=== PATIENT | male | born 1950 | race Caucasian/White ===

== ENCOUNTER 2017-04-08 05:55 | Emergency (ER) | payer MEDICARE, MEDICAID ==
[~2017-04-08] VITALS: Ht 185.4 cm; Wt 86.4 kg
[~2017-04-08 05:55] MED LIST: CHLO25CA10 PO; GABA-532 PO; LORA-269 PO; LORAZEPAM 1 MG TABLET; TAMS0.4C32 PO
[2017-04-08] MEDS ORDERED: LORazepam 1 MG tablet PO ONE (07:10)
[2017-04-08 07:22] VITALS: BP 137/81
== END 2017-04-08 07:25 | disposition home or self-care (01) ==
LOC: ER 05:56
DX: F41.9 Anxiety disorder, unspecified (principal); F10.20 Alcohol dependence, uncomplicated
CPT/HCPCS: 99284

== ENCOUNTER 2017-04-14 18:28 | Emergency (ER) | payer MEDICARE, MEDICAID ==
[~2017-04-14] VITALS: Ht 182.9 cm; Wt 86.3 kg
[2017-04-14] MEDS ORDERED: TETanus/Pertussis (Acell)/Diphther VAC/PF (Tdap-Adult) 0.5ml syringe IM ONE (18:40)
[2017-04-14] MEDS ORDERED: bacitracin 15gm ointment TP ONE (18:40)
[2017-04-14] MEDS ORDERED: normal saline 1000ml 1,000 ML IV ONE (18:45)
[2017-04-14 18:50] LABS: BASOPHILS % (AUTO) 0.3 % (0-1); EOSINOPHILS # (AUTO) 0.1 X10'3 (0-0.9); EOSINOPHILS % (AUTO) 1.3 % (0-6); HEMATOCRIT 40.9 % (42.0-52.0); HEMOGLOBIN 14.3 g/dl (14.0-17.9); LYMPHOCYTES # (AUTO) 2.3 X10'3 (1.1-4.8); LYMPHOCYTES % (AUTO) 37.3 % (21-51); MEAN CORPUSCULAR HEMOGLOBIN 34.4 PG (27.0-31.0); MEAN CORPUSCULAR VOLUME 98.3 FL (78-98); MEAN PLATELET VOLUME 6.8 FL (7.4-10.4); MONOCYTES # (AUTO) 0.4 X10'3 (0-0.9); MONOCYTES % (AUTO) 7.1 % (2-12); NEUTROPHILS # (AUTO) 3.3 X10'3 (1.8-7.7); PLATELET COUNT 165 X10'3 (140-440); RED BLOOD COUNT 4.16 X10'6 (4.70-6.10); RED CELL DISTRIBUTION WIDTH 13.1 % (11.5-14.5); WHITE BLOOD COUNT 6.1 X10'3 (4.5-11.0)
[2017-04-14 19:04] LABS: PARTIAL THROMBOPLASTIN TIME 25 SECONDS (22-32); PROTHROMBIN TIME 10.7 SECONDS (9.0-12.0)
[2017-04-14] MEDS ORDERED: thiamine 100mg/ml 2ml inj. IM ONE (19:05)
[2017-04-14] MEDS ORDERED: iohexol 300mg/ml 100ml inj. ONE (19:13)
[2017-04-14 19:35] LABS: CLARITY,URINE CLEAR (Clear); COLOR,URINE YELLOW (Yellow); GLUCOSE, URINE NEGATIVE (Neg); KETONES,URINE NEGATIVE (Neg); LEUKOCYTE ESTERASE ,URINE NEGATIVE (Neg); NITRITES, URINE NEGATIVE (Neg); OCCULT BLOOD,URINE NEGATIVE (Neg); PROTEIN,URINE NEGATIVE (Neg); UROBILINOGEN,URINE 0.2 E.U/dL (0.2-1.0)
[2017-04-14 19:38] LABS: UA COLLECTION TYPE CLN CATCH MIDSTREAM
[2017-04-14 19:42] LABS: ALANINE AMINOTRANSFERASE 82 U/L (12-78); ALBUMIN 2.9 G/DL (3.4-5.0); ALBUMIN/GLOBULIN RATIO 0.9 (1.1-1.5); ALKALINE PHOSPHATASE 50 IU/L (46-116); ANION GAP 11 (8-16); ASPARTATE AMINO TRANSFERASE 60 U/L (10-37); BILIRUBIN,TOTAL 0.3 MG/DL (0.1-1.0); BLOOD UREA NITROGEN 9 MG/DL (7-18); CALCIUM 7.5 MG/DL (8.5-10.1); CHLORIDE 105 MMOL/L (99-107); CREATININE 0.82 MG/DL (0.60-1.10); ETHANOL 0.299 GM/DL (0.0-0.010); GLUCOSE 120 MG/DL (70-104); POTASSIUM 3.6 MMOL/L (3.5-5.1); SODIUM 142 MMOL/L (135-145); TOTAL CARBON DIOXIDE 26.4 MMOL/L (24-32); TOTAL PROTEIN 6.1 G/DL (6.4-8.2); TROPONIN I < 0.04 NG/ML (0.0-0.05); eGFR > 90 ML/MIN
[2017-04-14 19:43] LABS: URINE AMPHETAMINE SCREEN NEGATIVE (Neg); URINE BARBITUATE SCREEN NEGATIVE (Neg); URINE BENZODIAZEPINES SCREEN NEGATIVE (Neg); URINE CANNABINOID SCREEN NEGATIVE (Neg); URINE COCAINE SCREEN NEGATIVE (Neg); URINE METHADONE SCREEN NEGATIVE (Neg); URINE OPIATE SCREEN NEGATIVE (Neg); URINE PHENCYCLIDINE SCREEN NEGATIVE (Neg)
[2017-04-14] MEDS ORDERED: LIDOcaine 1.5% w/epinephrine 1:200,000 5ml ampul SQ ONE (19:50)
[2017-04-14] MEDS ORDERED: normal saline 1000ML IV soln IVB ONE (20:10)
[2017-04-14] MEDS ORDERED: cefazolin 1gm/NS 100mL 100 ML IV ONE (20:30)
[2017-04-14] MEDS ORDERED: cefTRIAXone 1g/NS 100ml IVPB 100 ML IV ONE (20:30)
[2017-04-14] MEDS ORDERED: AMOX500C2 PO (21:07)
[2017-04-14 22:24] VITALS: BP 148/89
[2017-04-15] MEDS ORDERED: LORA1TAB PO (02:54)
== END 2017-04-14 22:27 | disposition home or self-care (01) ==
LOC: ER 18:29
DX: S02.2XXA Fracture of nasal bones, initial encounter for closed fracture (principal); S02.40DA Maxillary fracture, left side, initial encounter for closed fracture; S01.511A Laceration without foreign body of lip, initial encounter; F10.229 Alcohol dependence with intoxication, unspecified; Y90.9 Presence of alcohol in blood, level not specified; Z98.890 Other specified postprocedural states; Z79.899 Other long term (current) drug therapy; W01.0XXA Fall on same level from slipping, tripping and stumbling without subsequent striking against object, initial encounter; Y93.89 Activity, other specified; Y92.89 Other specified places as the place of occurrence of the external cause; Y99.8 Other external cause status; Y90.8 Blood alcohol level of 240 mg/100 ml or more
CPT/HCPCS: 12011; 36415; 70450; 70486; 71045; 71260; 72125; 74177; 80053; 80305; 80320; 81003; 84484; 85025; 85610; 85730; 86885; 86900; 86901; 90471; 90715; 93005; 96365; 96368; 96372; 99285; A6255; A6446; A6449; J0690; J0696; J3411; J7030; Q9967

== ENCOUNTER 2017-04-15 02:48 | Emergency (ER) | payer MEDICARE, MEDICAID ==
[~2017-04-15] VITALS: Ht 182.9 cm; Wt 86.3 kg
[~2017-04-15 02:48] MED LIST changes: +AMOX500C2 PO
[2017-04-15] MEDS ORDERED: LORA1TAB PO (02:54)
[2017-04-15] MEDS ORDERED: LORazepam 1 MG tablet PO ONE (02:55)
[2017-04-15 02:58] VITALS: BP 145/87
== END 2017-04-15 03:06 | disposition home or self-care (01) ==
LOC: ER 02:49
DX: F10.230 Alcohol dependence with withdrawal, uncomplicated (principal); Z88.1 Allergy status to other antibiotic agents; Z79.899 Other long term (current) drug therapy
CPT/HCPCS: 93005; 99283

== ENCOUNTER 2017-04-25 16:35 | Emergency (ER) | payer MEDICARE, MEDICAID ==
[~2017-04-25] VITALS: Ht 182.9 cm; Wt 92.0 kg
[~2017-04-25 16:35] MED LIST changes: +LORA1TAB PO
[2017-04-25] MEDS ORDERED: LORA1TAB PO (19:45)
[2017-04-25] MEDS ORDERED: LORazepam 1 MG tablet PO ONE (19:45)
[2017-04-25 20:02] VITALS: BP 149/120
== END 2017-04-25 20:03 | disposition home or self-care (01) ==
LOC: ER 16:36
DX: F10.239 Alcohol dependence with withdrawal, unspecified (principal); Z88.1 Allergy status to other antibiotic agents; Z79.01 Long term (current) use of anticoagulants
CPT/HCPCS: 99283

== ENCOUNTER 2017-05-31 14:46 | Emergency (ER) | payer MEDICARE, MEDICAID ==
[~2017-05-31] VITALS: Ht 180.3 cm; Wt 94.6 kg
[~2017-05-31 14:46] MED LIST changes: -AMOX500C2 PO; -LORA1TAB PO
[2017-05-31 16:18] VITALS: BP 157/64
[2017-05-31] MEDS ORDERED: PROP10TA10 PO (17:11)
== END 2017-05-31 17:39 | disposition home or self-care (01) ==
LOC: ER 14:46
DX: F41.9 Anxiety disorder, unspecified (principal); Z98.890 Other specified postprocedural states; Z79.899 Other long term (current) drug therapy
CPT/HCPCS: 99284

== ENCOUNTER 2017-06-07 21:04 | Emergency (ER) | payer MEDICARE, MEDICAID ==
[~2017-06-07] VITALS: Ht 182.9 cm; Wt 88.6 kg
[~2017-06-07 21:04] MED LIST changes: +PROP10TA10 PO
[2017-06-07] MEDS ORDERED: CHLO25CA10 PO (22:07)
[2017-06-07 22:18] VITALS: BP 134/92
[2017-06-07] MEDS: chlordiazePOXIDE 25mg capsule PO ONE (22:18)
== END 2017-06-07 22:23 | disposition home or self-care (01) ==
LOC: ER 21:06
DX: F10.239 Alcohol dependence with withdrawal, unspecified (principal); Z79.899 Other long term (current) drug therapy
CPT/HCPCS: 99283

== ENCOUNTER 2020-09-29 23:50 | Emergency (ER) | payer MEDICARE, MEDICAID ==
[~2020-09-29] VITALS: Ht 188 cm; Wt 110.0 kg
[~2020-09-29 23:50] MED LIST changes: -PROP10TA10 PO
--- NOTE | 2020-09-30 00:10 | NUR ---
pt states drink 1/2 pint of vodka daily.
--- NOTE | 2020-09-30 01:20 | NUR ---
pt yelling at staff, angry that he has to have the pulse ox on his finger. He is unsure why he is here and requests to leave. attempted to call his sister who did not answer.
[2020-09-30 02:40] LABS: BASOPHILS % (AUTO) 0.6 % (0-1); EOSINOPHILS # (AUTO) 0.1 X10'3 (0-0.9); EOSINOPHILS % (AUTO) 1.4 % (0-6); HEMATOCRIT 46.4 % (42.0-52.0); HEMOGLOBIN 15.9 g/dl (14.0-17.9); LYMPHOCYTES # (AUTO) 2.9 X10'3 (1.1-4.8); MEAN CORPUSCULAR HEMOGLOBIN 32.7 PG (27.0-31.0); MEAN CORPUSCULAR HGB CONC 34.2 g/dL (33.0-36.5); MEAN CORPUSCULAR VOLUME 95.7 FL (78-98); MEAN PLATELET VOLUME 8.1 FL (7.4-10.4); MONOCYTES # (AUTO) 0.8 X10'3 (0-0.9); MONOCYTES % (AUTO) 9.7 % (2-12); NEUTROPHILS # (AUTO) 4.2 X10'3 (1.8-7.7); NEUTROPHILS % (AUTO) 52.3 % (42-75); PLATELET COUNT 105 X10'3 (140-440); RED BLOOD COUNT 4.85 X10'6 (4.70-6.10); RED CELL DISTRIBUTION WIDTH 12.9 % (11.5-14.5)
[2020-09-30 02:49] LABS: CLARITY,URINE CLEAR (Clear); COLOR,URINE YELLOW (Yellow); GLUCOSE, URINE >=1000 mg/dl (Neg); KETONES,URINE NEGATIVE (Neg); LEUKOCYTE ESTERASE ,URINE NEGATIVE (Neg); NITRITES, URINE NEGATIVE (Neg); OCCULT BLOOD,URINE NEGATIVE (Neg); PROTEIN,URINE TRACE mg/dl (Neg); UROBILINOGEN,URINE 0.2 E.U/dL (0.2-1.0)
[2020-09-30 02:51] LABS: ALANINE AMINOTRANSFERASE 99 U/L (12-78); ALBUMIN 3.4 G/DL (3.4-5.0); ALBUMIN/GLOBULIN RATIO 0.9 (1.1-1.5); ALKALINE PHOSPHATASE 79 IU/L (46-116); ANION GAP 8 (8-16); ASPARTATE AMINO TRANSFERASE 58 U/L (10-37); BILIRUBIN,TOTAL 0.5 MG/DL (0.1-1.0); BLOOD UREA NITROGEN 11 MG/DL (7-18); BUN/CREATININE RATIO 9.9 (5.4-32.0); CHLORIDE 105 MMOL/L (99-107); CREATININE 1.11 MG/DL (0.60-1.10); GLUCOSE 342 MG/DL (70-104); POTASSIUM 3.9 MMOL/L (3.5-5.1); SODIUM 140 MMOL/L (135-145); TOTAL CARBON DIOXIDE 27.1 MMOL/L (24-32); TOTAL PROTEIN 7.2 G/DL (6.4-8.2); eGFR 65 ML/MIN
[2020-09-30 02:55] LABS: ETHANOL 0.069 GM/DL (0.0-0.010); TROPONIN I 0.04 NG/ML (0.0-0.05)
[2020-09-30 03:39] LABS: BACTERIA,URINE NONE SEEN /HPF (Neg); RBC,URINE NONE SEEN /HPF (0-2); UA COLLECTION TYPE VOIDED; WBC,URINE NONE SEEN /HPF (0-4)
[2020-09-30 03:40] LABS: SQUAMOUS EPITHELIAL CELL,UR NONE SEEN /LPF (FEW)
[2020-09-30 05:02] LABS: URINE AMPHETAMINE SCREEN NEGATIVE (Neg); URINE BARBITUATE SCREEN NEGATIVE (Neg); URINE BENZODIAZEPINES SCREEN POSITIVE (Neg); URINE CANNABINOID SCREEN NEGATIVE (Neg); URINE COCAINE SCREEN NEGATIVE (Neg); URINE METHADONE SCREEN NEGATIVE (Neg); URINE OPIATE SCREEN NEGATIVE (Neg); URINE PHENCYCLIDINE SCREEN NEGATIVE (Neg)
[2020-09-30] MEDS ORDERED: insulin regular, human 10 units/0.1 ml syringe SQ ONE (05:25)
[2020-09-30 06:43] VITALS: BP 151/93
== END 2020-09-30 06:40 | disposition home or self-care (01) ==
LOC: ER 23:50
DX: E11.9 Type 2 diabetes mellitus without complications (principal); F10.129 Alcohol abuse with intoxication, unspecified; F41.9 Anxiety disorder, unspecified; Z86.19 Personal history of other infectious and parasitic diseases; Z72.89 Other problems related to lifestyle; Z98.890 Other specified postprocedural states; Z79.899 Other long term (current) drug therapy; Y90.0 Blood alcohol level of less than 20 mg/100 ml; R41.0 Disorientation, unspecified; R41.82 Altered mental status, unspecified; S09.90XA Unspecified injury of head, initial encounter; W18.39XA Other fall on same level, initial encounter
CPT/HCPCS: 36415; 70450; 72125; 80053; 80305; 80320; 80329; 81001; 84484; 85025; 99285; J1815